=== PATIENT | female | born 1990 | race Caucasian/White ===

== ENCOUNTER 2016-11-06 15:31 | Emergency (ER) | payer MEDICAID ==
[~2016-11-06] VITALS: Ht 162.6 cm; Wt 92.0 kg
[~2016-11-06 15:31] MED LIST: Docusate Sod/Senna PO; IBUP600 PO; PERC5TAB12 PO; ZOFR4TAB3 SL; [UNRECOGNIZED DRUG - CODE] PO
[2016-11-06 15:33] VITALS: BP 139/80; PULSE 114; RESP 17; TEMP 98.2; O2SAT 99
--- NOTE | 2016-11-06 15:43 | PD ---
Physical Exam Time Seen by Provider: 15:40 Narrative 26yo F c/o abd pain RLQ x [address] sent for positive obturator sign and positive McBurney tenderness and want evaluation for appendicitis. LMP last . Tristin fever, vomiting. VS reviewed. Patient seen in triage. Awaiting bed placement. Data Data Last Documented VS Vital Signs Date Time Temp Pulse Resp B/P Pulse Ox O2 Delivery O2 Flow Rate FiO2 11/06/16 15:33 98.2 114 17 139/80 99 MDM Supervised Visit with JACK: Valarie Arellano November 06, 2016 15:42
[2016-11-06] MEDS ORDERED: SODIUM CHLOR 0.9% 1000 ML INJ 1,000 ML IV SCH (17:10)
[2016-11-06] MEDS ORDERED: SODIUM CHLORIDE 0.9% FLUSH 10 ML FLUSH IV FLUSH PRN (17:15)
[2016-11-06] MEDS ORDERED: ONDANSETRON HCL 4 MG/2 ML VIAL IVP ONE (17:15)
[2016-11-06] MEDS ORDERED: KETOROLAC TROMETHAMINE 30 MG/ML (IVP) VIAL IVP ONE (17:15)
--- NOTE | 2016-11-06 17:16 | PD ---
HPI Chief Complaint: Abdominal Pain Time Seen by Provider: 17:03 Travel History International Travel<30 days: No Contact w/Intl Traveler<30days: No Traveled to known affect area: No History of Present Illness HPI The patient is a 26-year-old female who presents emergency department for abdominal pain of 4 weeks' duration. The patient is Estonian and Irish- speaking. The patient notes a 4 week history of abdominal pain is located mostly in right lower quadrant for abdomen, radiates into the right leg, worse with movement of the right leg, and also worse with palpation of the abdomen. The patient denies any fever, chills, sweats, nausea, vomiting, or constipation. The patient was seen by her primary physician today who referred her to the emergency department for CT of the abdomen and pelvis to rule out appendicitis. The patient does have a history of 3 previous sections. She does complain of mild dysuria but denies vaginal discharge or bleeding. Symptoms are moderate, worse with certain types of movement, and minimally alleviated at rest. The patient denies , is currently on Depo. PFSH Past Medical History Medical History: Denies Significant Hx ?: Unknown Past Surgical History Narrative Surgical 3 sections Social History Alcohol Use: No Tobacco Use: No Allergies-Medications (Allergen,Severity, Reaction): Coded Allergies: No Known Allergies (Unverified , 08/21/13) Reported Meds & Prescriptions Reported Meds & Active Scripts Active Ibuprofen 600 Mg Tab 600 Mg PO Q6H PRN Review of Systems Except as stated in HPI: all other systems reviewed are Neg General / Constitutional: No: Fever Cardiovascular: No: Chest Pain or Discomfort Respiratory: No: Shortness of Breath Gastrointestinal: Positive: Abdominal Pain, No: Nausea, Vomiting, Diarrhea Genitourinary: Positive: Dysuria, No: Discharge, Vaginal Bleeding Musculoskeletal: Positive: Pain (right thigh pain) Physical Exam Narrative GENERAL: Awake, alert, very pleasant 26-year-old female who appears her stated age and is in no acute respiratory distress. SKIN: Focused skin assessment warm/dry. HEAD: Atraumatic. Normocephalic. EYES: Pupils equal and round. No scleral icterus. No injection or drainage. ENT: No nasal bleeding or discharge. Mucous membranes pink and moist. NECK: Trachea midline. No JVD. CARDIOVASCULAR: Regular rate and rhythm. No murmur appreciated. RESPIRATORY: No accessory muscle use. Clear to auscultation. Breath sounds equal bilaterally. GASTROINTESTINAL: Abdomen soft, tender palpation right lower quadrant. Positive obturator. Back: No CVA tenderness. MUSCULOSKELETAL: No obvious deformities. No clubbing. No cyanosis. No edema. NEUROLOGICAL: Awake and alert. No obvious cranial nerve deficits. Motor grossly within normal limits. Normal speech. PSYCHIATRIC: Appropriate mood and affect; insight and judgment normal. Data Data Last Documented VS Vital Signs Date Time Temp Pulse Resp B/P Pulse Ox O2 Delivery O2 Flow Rate FiO2 11/06/16 18:11 98 Room Air 11/06/16 15:33 98.2 114 17 139/80 Orders Complete Blood Count With Diff (11/06/16 17:10) Comprehensive Metabolic Panel (11/06/16 17:10) Lipase (11/06/16 17:10) Urinalysis - C+S If Indicated (11/06/16 17:10) Ct Abd/Pel W/O Iv Contrast (11/06/16 17:10) Iv Access Insert/Monitor (11/06/16 17:10) Ecg Monitoring (11/06/16 17:10) Oximetry (11/06/16 17:10) Ondansetron Inj (Zofran Inj) (11/06/16 17:15) Sodium Chlor 0.9% 1000 Ml Inj (Ns 1000 M (11/06/16 17:10) Sodium Chloride 0.9% Flush (Ns Flush) (11/06/16 17:15) Ketorolac Inj (Toradol Inj) (11/06/16 17:15) Ed Urine Pregnancytest Poc (11/06/16 17:10) Urine Culture (11/06/16 18:00) Labs Laboratory Tests Test 11/06/16 11/06/16 17:20 18:00 White Blood Count 10.4 TH/MM3 Red Blood Count 5.05 MIL/MM3 Hemoglobin 14.2 GM/DL Hematocrit 40.4 % Mean Corpuscular Volume 80.0 FL Mean Corpuscular Hemoglobin 28.1 PG Mean Corpuscular Hemoglobin 35.1 % Concent Red Cell Distribution Width 13.5 % Platelet Count 274 TH/MM3 Mean Platelet Volume 7.8 FL Neutrophils (%) (Auto) 65.9 % Lymphocytes (%) (Auto) 27.7 % Monocytes (%) (Auto) 5.5 % Eosinophils (%) (Auto) 0.6 % Basophils (%) (Auto) 0.3 % Neutrophils # (Auto) 6.9 TH/MM3 Lymphocytes # (Auto) 2.9 TH/MM3 Monocytes # (Auto) 0.6 TH/MM3 Eosinophils # (Auto) 0.1 TH/MM3 Basophils # (Auto) 0.0 TH/MM3 CBC Comment DIFF FINAL Differential Comment Sodium Level 138 MEQ/L Potassium Level 4.0 MEQ/L Chloride Level 105 MEQ/L Carbon Dioxide Level 27.3 MEQ/L Anion Gap 6 MEQ/L Blood Urea Nitrogen 9 MG/DL Creatinine 0.70 MG/DL Estimat Glomerular Filtration 100 ML/MIN Rate Random Glucose 89 MG/DL Calcium Level 9.5 MG/DL Total Bilirubin 0.5 MG/DL Aspartate Amino Transf 15 U/L (AST/SGOT) Alanine Aminotransferase 24 U/L (ALT/SGPT) Alkaline Phosphatase 117 U/L Total Protein 8.8 GM/DL Albumin 4.5 GM/DL Lipase 96 U/L Urine Color YELLOW Urine Turbidity CLEAR Urine pH 6.5 Urine Specific Cord 1.032 Urine Protein TRACE mg/dL Urine Glucose (UA) NEG mg/dL Urine Ketones 10 mg/dL Urine Occult Blood MOD Urine Nitrite NEG Urine Bilirubin NEG Urine Urobilinogen LESS THAN 2.0 MG/DL Urine Leukocyte Esterase NEG Urine RBC /hpf Urine WBC 1 /hpf Urine Squamous Epithelial 1 /hpf Cells Urine Bacteria MOD /hpf Urine Mucus FEW /lpf Microscopic Urinalysis Comment CULTURE INDICATED MDM Medical Decision Making Medical Screen Exam Complete: Yes Emergency Medical Condition: Yes Medical Record Reviewed: Yes Interpretation(s) Laboratory Tests Test 11/06/16 11/06/16 17:20 18:00 White Blood Count 10.4 TH/MM3 Red Blood Count 5.05 MIL/MM3 Hemoglobin 14.2 GM/DL Hematocrit 40.4 % Mean Corpuscular Volume 80.0 FL Mean Corpuscular Hemoglobin 28.1 PG Mean Corpuscular Hemoglobin 35.1 % Concent Red Cell Distribution Width 13.5 % Platelet Count 274 TH/MM3 Mean Platelet Volume 7.8 FL Neutrophils (%) (Auto) 65.9 % Lymphocytes (%) (Auto) 27.7 % Monocytes (%) (Auto) 5.5 % Eosinophils (%) (Auto) 0.6 % Basophils (%) (Auto) 0.3 % Neutrophils # (Auto) 6.9 TH/MM3 Lymphocytes # (Auto) 2.9 TH/MM3 Monocytes # (Auto) 0.6 TH/MM3 Eosinophils # (Auto) 0.1 TH/MM3 Basophils # (Auto) 0.0 TH/MM3 CBC Comment DIFF FINAL Differential Comment Sodium Level 138 MEQ/L Potassium Level 4.0 MEQ/L Chloride Level 105 MEQ/L Carbon Dioxide Level 27.3 MEQ/L Anion Gap 6 MEQ/L Blood Urea Nitrogen 9 MG/DL Creatinine 0.70 MG/DL Estimat Glomerular Filtration 100 ML/MIN Rate Random Glucose 89 MG/DL Calcium Level 9.5 MG/DL Total Bilirubin 0.5 MG/DL Aspartate Amino Transf 15 U/L (AST/SGOT) Alanine Aminotransferase 24 U/L (ALT/SGPT) Alkaline Phosphatase 117 U/L Total Protein 8.8 GM/DL Albumin 4.5 GM/DL Lipase 96 U/L Urine Color YELLOW Urine Turbidity CLEAR Urine pH 6.5 Urine Specific Cord 1.032 Urine Protein TRACE mg/dL Urine Glucose (UA) NEG mg/dL Urine Ketones 10 mg/dL Urine Occult Blood MOD Urine Nitrite NEG Urine Bilirubin NEG Urine Urobilinogen LESS THAN 2.0 MG/DL Urine Leukocyte Esterase NEG Urine RBC /hpf Urine WBC 1 /hpf Urine Squamous Epithelial 1 /hpf Cells Urine Bacteria MOD /hpf Urine Mucus FEW /lpf Microscopic Urinalysis Comment CULTURE INDICATED Last Impressions Abdomen/Pelvis CT 11/06/16 1710 Signed Impressions: Service Date/Time: Sunday, November 06, 2016 18:43 - CONCLUSION: No acute CT findings in the abdomen or pelvis. Fracisco Manley MD Differential Diagnosis Differential diagnosis includes appendicitis, perforated appendicitis, psoas abscess, UTI, ovarian cyst, ovarian torsion, femoral hernia, inguinal hernia, Crohn's disease, ulcerative colitis. Narrative Course IV was established, labs are drawn and sent, and the patient was placed on cardiac telemetry monitoring and continuous pulse oximetry monitoring. The patient was administered Toradol, Zofran, and IV fluids. UA was sent to lab and bedside UA test was obtained. CT of the abdomen and pelvis was ordered. test is negative. White count is within normal limits. Complete metabolic profile is unremarkable. Blood reveals innumerable RBCs and moderate blood with bacteria, no wbc's, the patient is currently on her menstrual cycle. CT of the abdomen and pelvis is negative. The patient's symptoms been ongoing for 3-4 weeks with right lower quadrant abdominal pain that radiates into the right leg is worse with flexion the right hip, may be secondary to psoas muscle strain versus inguinal strain. The patient will be discharged on anti-inflammatories. She is advised to follow-up with her primary physician, she will be provided a copy of her CT results and lab results at discharge. Diagnosis Primary Impression: Abdominal pain Qualified Code: R10.31 - Right lower quadrant abdominal pain Additional Impression: Right groin pain Patient Instructions: General Instructions Additional Instructions: Medications as directed. Follow-up with your primary physician. Return if symptoms worsen or progress. Please provide the patient a copy of her CT results and lab results at discharge. Med/Other Pt SpecificInfo: Prescription(s) given Scripts Ibuprofen 600 Mg [id number] Mg PO Q6H PRN (Pain/Inflammation) #20 TAB Ref 0 Prov:Antonio Umana MD 11/06/16 Disposition: 01 DISCHARGE HOME Condition: Stable Antonio Umana MD November 06, 2016 17:16
[2016-11-06 17:37] LABS: AUTOMATED NEUTROPHIL # 6.9 TH/MM3 (1.8-7.7); BASOPHIL % 0.3 % (0.0-2.0); EOSINOPHIL # 0.1 TH/MM3 (0-0.4); EOSINOPHIL % 0.6 % (0.0-4.0); HEMATOCRIT 40.4 % (35.0-46.0); HEMO FLAGS DIFF FINAL; LYMPH % 27.7 % (9.0-44.0); LYMPHOCYTE # 2.9 TH/MM3 (1.0-4.8); MEAN CORPUSCULAR HEMOGLOBIN 28.1 PG (27.0-34.0); MEAN CORPUSCULAR HGB CONC 35.1 % (32.0-36.0); MONO % 5.5 % (0.0-8.0); NEUT % 65.9 % (16.0-70.0); PLATELET COUNT 274 TH/MM3 (150-450); RED BLOOD COUNT 5.05 MIL/MM3 (4.00-5.30); RED CELL DISTRIBUTION WIDTH 13.5 % (11.6-17.2); WHITE BLOOD COUNT 10.4 TH/MM3 (4.0-11.0)
[2016-11-06 18:06] LABS: ALT (GPT) 24 U/L (10-53); ANION GAP 6 MEQ/L (5-15); AST (GOT) 15 U/L (15-37); BICARBONATE 27.3 MEQ/L (21.0-32.0); BLOOD UREA NITROGEN 9 MG/DL (7-18); CHLORIDE 105 MEQ/L (98-107); GLOMERULAR FILTRATION RATE 100 ML/MIN (>89); SODIUM (NA) 138 MEQ/L (136-145)
[2016-11-06 18:08] LABS: ALKALINE PHOSPHATASE 117 U/L (45-117); TOTAL BILIRUBIN ADULT 0.5 MG/DL (0.2-1.0)
[2016-11-06 18:11] VITALS: O2SAT 98
[2016-11-06 18:33] LABS: BACTERIA, URINE MOD /hpf; BLOOD, URINE MOD (NEG); COMMENT (UR) CULTURE INDICATED; CULTURE IF INDICATED CULTURE INDICATED; GLUCOSE,URINE NEG (NEG); KETONE, URINE 10 mg/dL (NEG); MUCUS URINE FEW /lpf (OCC); NITRITE,URINE NEG (NEG); PH, URINE 6.5 (5.0-8.5); SQUAMOUS EPITHELIAL CELL URINE 1 /hpf (0-5); URINE COLOR YELLOW (YELLW/STRAW)
--- NOTE | 2016-11-06 18:58 | RADRPT ---
EXAM DATE/TIME: 11/06/2016 18:43 [facility] COMPARISON: No previous studies available for comparison. INDICATIONS : Right lower quadrant pain ORAL CONTRAST: No oral contrast ingested. RADIATION DOSE: 14.89 CTDIvol (mGy) MEDICAL HISTORY : None SURGICAL HISTORY : None. ENCOUNTER: Initial ACUITY: 1 day PAIN SCALE: 8/10 LOCATION: Right lower quadrant abdomen TECHNIQUE: Volumetric scanning of the abdomen and pelvis was performed. Using automated exposure control and ad justment of the mA and/or kV according to patient size, radiation dose was kept as low as reasonably achievable to obtain optimal diagnostic quality images. FINDINGS: LOWER LUNGS: The visualized lower lungs are clear. LIVER: Homogeneous density without lesion. There is no dilation of the biliary tree. No calcified gallston es. SPLEEN: Normal size without lesion. PANCREAS: Within normal limits. KIDNEYS: Normal in size and shape. There is no mass, stone, or hydronephrosis. ADRENAL GLANDS: Within normal limits. VASCULAR: There is no aortic aneurysm. BOWEL/MESENTERY: The stomach, small bowel, and colon demonstrate no acute abnormality. There is no free intraperitone al air or fluid. The appendix is seen and appears normal ABDOMINAL WALL: Within normal limits. RETROPERITONEUM: There is no lymphadenopathy. BLADDER: No wall thickening or mass. REPRODUCTIVE: Within normal limits. INGUINAL: There is no lymphadenopathy or hernia. MUSCULOSKELETAL: Within normal limits for patient age. CONCLUSION: No acute CT findings in the abdomen or pelvis. Fracisco Manley MD on November 06, 2016 at 18:53 Board Certified Radiologist. This report was verified electronically.
[2016-11-06] MEDS ORDERED: IBUP-232 PO (19:10)
== END 2016-11-06 19:49 | disposition home or self-care (01) ==
LOC: NEPD 15:31
DX: R10.31 Right lower quadrant pain (principal); R10.2 Pelvic and perineal pain; Z32.02 Encounter for pregnancy test, result negative
CPT/HCPCS: 74176; 80053; 81001; 83690; 84703; 85025; 87086; 96374; 96375; 99284; J1885; J2405; J7030